=== PATIENT | male | born 1960 | race Caucasian/White ===

== ENCOUNTER 2018-09-01 07:45 | Outpatient (CLI) | payer BC ==
--- NOTE | 2018-09-01 08:23 | RAD ---
RADIOGRAPH LUMBAR SPINE 4 VIEWS: DATE: 09/01/2018 HISTORY: 58-year-old male with lumbar radiculopathy TECHNIQUE: All views upright. Lateral neutral, flexion, and extension. AP. FINDINGS: There are 5 lumbar-type vertebrae. Vertebral body heights are maintained. No scoliosis. No spondyloli sthesis. Mild disc space narrowing at L5-S1. The rest of the disc spaces are maintained. No instability between flexion and extension. IMPRESSION: 1. Mild disc space narrowing at L5-S1. 2. Otherwise negative
--- NOTE | 2018-09-01 10:17 | MRI ---
MRI LUMBAR SPINE WITHOUT CONTRAST: HISTORY: Lumbar radiculopathy. Low back pain with numbness along the backside of both his legs. FINDINGS: Correlation is made with lumbar spine radiographs of the same date. The vertebral body heights and m arrow signal are maintained. There is a focal area of T1 and T2 signal involving S2 and T12 vertebra l bodies consistent with hemangiomas. The conus medullaris ends at L1 level. Disk desiccation is pr esent in the lower lumbar spine. There are mild broad-based disk bulges at L3-4, L4-5, and L5-S1 lev els. Associated bilateral facet hypertrophic change is also seen. There is an excluded disk fragmen t in the right lateral recess of L5-S1 level causing impingement of the right S1 nerve root. There i s a focus of T2 prolongation in the posterior central aspect of the L5-S1 disk consistent with annula r tear. No significant neural foraminal stenosis is seen. There is bilateral lateral recess stenosis at L3-4 and L4-5 levels. The paraspinal musculature is normal. IMPRESSION: 1. Annular tear involving L5-S1 disk. 2. Right paracentral disk extrusion into the right lateral recess causing nerve root compression of S1. 3. Bilateral lateral recess stenoses at L3-4 and L4-5 levels. POS: [facility]
== END 2018-09-01 07:46 | disposition home or self-care (01) ==
LOC: TBSIIMAG 07:45
PROVIDERS: ATTEND Physician Assistant Surgical
DX: M51.16 Intervertebral disc disorders with radiculopathy, lumbar region (principal); M51.17 Intervertebral disc disorders with radiculopathy, lumbosacral region; M48.061 Spinal stenosis, lumbar region without neurogenic claudication; M48.07 Spinal stenosis, lumbosacral region
CPT/HCPCS: 72110; 72148

== ENCOUNTER 2021-08-07 07:24 | Outpatient (CLI) | payer BC ==
[2021-08-07 08:17] LABS: Hemoglobin 16.2 g/dL (13.5-17.5); Mean Corpuscular HGB CONC 33.6 g/dL (32.0-36.0); Mean Corpuscular Hemoglobin 30.9 pg (27.0-33.0); Mean Corpuscular Volume 91.8 fl (81.2-95.1); Mean Platelet Volume 9.5 fl (7.4-10.4); Platelet Count 235 10x3/uL (150-450); RBC Distribution Width 13.7 % (11.5-14.5); Red Blood Cell (RBC) Count 5.25 10x6/uL (4.32-5.72); White Blood Cell (WBC) Count 8.1 10x3/uL (3.5-10.5)
[2021-08-07 08:23] LABS: Anion Gap 14 mmol/L (10-20); BUN (Urea Nitrogen) 15 mg/dL (8.4-25.7); Calc. Creatinine Clearance 0 mL/min (70-130); Calcium 9.2 mg/dL (7.8-10.44); Carbon Dioxide 25 mmol/L (23-31); Chloride 106 mmol/L (98-107); Glucose 105 mg/dL (80-115); PTT 25.3 sec (22.0-33.0); Potassium 4.2 mmol/L (3.5-5.1); Prothrombin Time 10.8 sec (9.5-12.1); Sodium 141 mmol/L (136-145)
[2021-08-07 16:01] LABS: SARS-CoV-2 PCR by NAA Not Detected (NotDetected)
== END 2021-08-07 07:25 | disposition home or self-care (01) ==
LOC: LABBT 07:24
PROVIDERS: ATTEND Surgery
DX: Z01.812 Encounter for preprocedural laboratory examination (principal); M51.16 Intervertebral disc disorders with radiculopathy, lumbar region; M48.062 Spinal stenosis, lumbar region with neurogenic claudication; Z20.822 Contact with and (suspected) exposure to COVID-19
CPT/HCPCS: 80048; 85027; 85610; 85730; U0003; U0005

== ENCOUNTER 2021-08-10 06:04 | Observation (INO) | payer BC ==
[2021-08-08 14:26] VITALS: BMI 30.9
[2021-08-10] MEDS ORDERED: Thrombin 5000 UNITS/5 ML VIAL ONE ×3 (06:25→09:51)
[2021-08-10] MEDS ORDERED: ceFAZolin (BATCH) 2 GM/100 ML BAG ONE (07:01)
[2021-08-10] MEDS ORDERED: ePHEDrine 50 MG/ML VIAL ONE (07:40)
[2021-08-10] MEDS ORDERED: Dexamethasone 20 MG/5 ML VIAL ONE (07:40)
[2021-08-10] MEDS ORDERED: PROPOFOL 200 MG/20 ML VIAL ONE (07:40)
[2021-08-10] MEDS ORDERED: Rocuronium Bromide 10 MG/ML (10ML VIAL) ONE (07:40)
[2021-08-10] MEDS ORDERED: Ketorolac Tromethamine 30 MG/ML VIAL ONE (07:40)
[2021-08-10] MEDS ORDERED: Lidocaine 1% PF 5 ML VIAL ONE (07:40)
[2021-08-10] MEDS ORDERED: Glycopyrrolate 0.2 MG/ML 5 ML SYRINGE ONE (07:40)
[2021-08-10] MEDS ORDERED: Ondansetron PF 4 MG/2 ML Vial ONE (07:40)
[2021-08-10] MEDS ORDERED: Phenylephrine 10 MG/ML VIAL ONE (08:36)
[2021-08-10] MEDS ORDERED: Morphine 2 MG/ML VIAL SLOW IVP PRN (10:44)
[2021-08-10] MEDS ORDERED: Acetaminophen/Codeine 30-300mg Tablet PO PRN (10:44)
[2021-08-10] MEDS ORDERED: traMADol HCl 50 MG TAB PO PRN (10:44)
[2021-08-10] MEDS ORDERED: Ondansetron PF 4 MG/2 ML Vial IVP PRN (10:44)
[2021-08-10] MEDS ORDERED: HYDROcodone/Acetaminophen 7.5/325 mg Tablet PO PRN (10:44)
[2021-08-10] MEDS ORDERED: Acetaminophen 325 MG TAB PO PRN (10:44)
[2021-08-10] MEDS ORDERED: hydrALAZINE 20 MG/ML VIAL SLOW IVP PRN (10:47)
[2021-08-10] MEDS ORDERED: Promethazine HCl 25 MG/ML VIAL IVPB PRN (10:54)
[2021-08-10] MEDS ORDERED: Ondansetron HCl/PF 4 MG/2 ML Vial IVP PRN (10:54)
[2021-08-10] MEDS ORDERED: Promethazine HCl 25 MG/ML VIAL IM PRN (10:54)
[2021-08-10] MEDS: Sodium Chloride 0.9% 1,000 ML IV SCH (11:51)
[2021-08-10] MEDS ORDERED: tiZANidine HCl 4 MG TAB PO PRN (13:25)
[2021-08-10] MEDS: ceFAZolin (BATCH) 2 GM in Premix Bag 1 BAG IVPB SCH ×2 (14:26→21:20)
[2021-08-11] MEDS: Sodium Chloride 0.9% 1,000 ML IV SCH (01:21)
[2021-08-11 08:07] VITALS: BP 130/77; TEMP 98.5
[2021-08-11] MEDS ORDERED: Rosuvastatin 10 MG TAB PO SCH (09:00)
== END 2021-08-11 11:15 | disposition home or self-care (01) ==
LOC: SDC 06:04 → SURG A 11:29
PROVIDERS: ADMIT Surgery; ATTEND Surgery
PROC: 01NB0ZZ Release Lumbar Nerve, Open Approach (ICD-10-PCS; principal; 2021-08-10)
PROC: 0SB40ZZ Excision of Lumbosacral Disc, Open Approach (ICD-10-PCS; 2021-08-10)
DX: M48.062 Spinal stenosis, lumbar region with neurogenic claudication (principal); M51.16 Intervertebral disc disorders with radiculopathy, lumbar region; I10 Essential (primary) hypertension; E78.5 Hyperlipidemia, unspecified; E66.9 Obesity, unspecified; Z68.39 Body mass index [BMI] 39.0-39.9, adult; Z79.899 Other long term (current) drug therapy
CPT/HCPCS: 76000; 96365; 96366; G0378; J0690; J1100; J1885; J2370; J2405; J2704; J3370; J3490